=== PATIENT | male | born 1980 | race African-American/Black ===

== ENCOUNTER 2017-06-26 11:49 | Emergency (ER) | payer OTHER ==
[~2017-06-26] VITALS: Ht 167.6 cm; Wt 104.0 kg
[2017-06-26 11:57] VITALS: Ht 167.6 cm; Wt 104.0 kg
--- NOTE | 2017-06-26 14:11 | ERD ---
ER Documentation Chief Complaint Date/Time DATE: 06/26/17 TIME: 14:09 Chief Complaint Complains of right eye pain since yesterday HPI This 36-year-old male complains of inability to remove his soft contact lens from his right eye since last night. He has redness and discomfort. Denies visual changes or blurry vision or visual field deficits. ROS All systems reviewed and are negative except as per history of present illness. Medications Home Meds Reported Medications [None] No Conflict Check 08/07/10 Allergies Allergies: Coded Allergies: No Known Allergy (Verified Allergy, Mild, 08/07/10) PMhx/Soc History of Surgery: No Anesthesia Reaction: No Hx Neurological Disorder: No Hx Respiratory Disorders: No Hx Cardiac Disorders: No Hx Psychiatric Problems: No Hx Alcohol Use: No Hx Substance Use: No Hx Tobacco Use: No Smoking Status: Never smoker Physical Exam Vitals Vital Signs Date Time Temp Pulse Resp B/P Pulse Ox O2 Delivery O2 Flow Rate FiO2 06/26/17 11:57 97.8 77 20 134/79 98 Physical Exam Const: Alert, [id number] Head: Atraumatic Eyes: Some generalized right scleral redness. This appears to be a contact lens in normal position of the right cornea. Eyes are PERRLA and anterior chambers appeared normal. ENT: Normal External Ears, Nose and Mouth. Neck: Full range of motion..~ No meningismus. Resp: Clear to auscultation bilaterally Cardio: Regular rate and rhythm, no murmurs Abd: Soft, non tender, non distended. Normal bowel sounds Skin: No petechiae or rashes Back: No midline or flank tenderness Ext: No cyanosis, or edema Neur: Awake and alert Psych: Normal Mood and Affect Procedures/MDM Tetracaine drops were applied using curettes and swabs an attempt was made to remove the contact lens but it appears to be adhered to the cornea, unable to break what appears to be a vacuum negative pressure. To avoid further abdominal damage patient will be referred directly to [facility] ophthalmology for further treatment in the clinic today. Contact was made with the ophthalmology clinic. There is no evidence of globe, orbital cellulitis, current loss of vision or visual field deficits. Departure Diagnosis: Primary Impression: Eye problem Condition: Stable Patient Instructions: Foreign Object in the Cornea, Corneal Injury, Contact Lens Referrals: [facility] Hours: Mon - Fri 9:00 AM - 5:00 PM Additional Instructions: See ophthalmology today for further evaluation and treatment.May need authorization for primary care doctor. JLUIS GARCIA MD Jun 26, 2017 14:11
== END 2017-06-26 14:11 | disposition home or self-care (01) ==
LOC: FTE 11:49
DX: H57.8 Other specified disorders of eye and adnexa (principal)
CPT/HCPCS: 99282